=== PATIENT | male | born 1985 | race Two or more races ===

== ENCOUNTER 2021-03-04 13:37 | Outpatient (REF) | payer OTHER, SELFPAY ==
[2021-03-04 14:52] LABS: Binax Internal Control QC Valid; Binax Lot number: 9864; Binax Now Covid-19 Ag Positive (Negative)
== END 2021-03-04 13:38 | disposition home or self-care (01) ==
LOC: HO.LAB 13:37
PROVIDERS: Visit Provider Internal Medicine
DX: Z20.822 Contact with and (suspected) exposure to COVID-19 (principal)
CPT/HCPCS: 36415; C9803

== ENCOUNTER 2021-06-19 08:42 | Outpatient (REF) | payer OTHER, SELFPAY ==
[2021-06-19 09:49] LABS: Anion Gap 10 (12-20); Blood Urea Nitrogen 14 mg/dL (9-16); Calcium 9.4 mg/dL (8.4-10.2); Carbon Dioxide 28 mmol/L (22-29); Chloride 105 mmol/L (96-108); Estimated Glomerular Filt Rate > 60; Glucose Random 99 mg/dL (60-115); Potassium 4.9 mmol/L (3.3-5.1); Sodium 138 mmol/L (135-145)
[2021-06-19 10:05] LABS: Erythrocyte Sedimentation Rate 2 MM/HR (0-15)
[2021-06-21 01:51] LABS: Lyme Abs Screen <0.90 index
== END 2021-06-19 08:43 | disposition home or self-care (01) ==
LOC: HO.LAB 08:42
PROVIDERS: Visit Provider Psychiatry & Neurology Neurology
DX: G50.0 Trigeminal neuralgia (principal)
CPT/HCPCS: 36415; 80048; 85652; 86617; 86618

== ENCOUNTER 2021-06-26 15:15 | Outpatient (REF) | payer OTHER, SELFPAY ==
--- NOTE | ~2021-06-26 | XR_ITS ---
EXAMINATION: XR ABDOMEN KUB CLINICAL INDICATION: MRI COMPARISON: None TECHNIQUE: AP view of the abdomen. FINDINGS: The bowel gas pattern is normal with no evidence of ileus or obstruction. No unusual soft tissue calcifications are noted. The bones are unremarkable. There is 1.4 cm radiodense metallic object projecting over the right side of the pelvis could be an ingested intraluminal or in the abdominal wall. No free air. XR/XR abdomen 1V IMPRESSION: There is 1.4 cm metallic object projecting over the pelvis could be within the bowel, pelvis or abdominal wall. May consider correlation with cross-sectional imaging or lateral x-ray views.
== END 2021-06-26 15:16 | disposition home or self-care (01) ==
LOC: HO.XRAY 15:15
PROVIDERS: Visit Provider Psychiatry & Neurology Neurology
DX: Z01.818 Encounter for other preprocedural examination (principal)
CPT/HCPCS: 74018